=== PATIENT | female | born 1945 | race Caucasian/White ===

== ENCOUNTER 2020-11-23 12:06 | Inpatient (IN) ==
[2020-11-23] MEDS ORDERED: Diphenoxylate/Atropine 1 TAB TABLET PO PRN (21:45)
[2020-11-23] MEDS: *HR* OxyCODONE/APAP 5/325 TABLET PO PRN (22:36)
[2020-11-24 05:31] LABS: Basophils % 0.4 %; Eosinophils # 0.2 K/mcL (0.0-0.6); Eosinophils % 2.9 %; Hemoglobin 7.9 g/dL (11.5-15.4); Immature Granulocytes % 1.4 % (0-4); Lymphocytes # 2.3 K/mcL (0.6-4.6); Lymphocytes % 28.7 %; Mean Corpuscular HGB Conc 32.9 g/dL (31.6-35.5); Mean Corpuscular Hemoglobin 29.5 pg (28.0-33.3); Mean Corpuscular Volume 89.6 fL (83.0-100.0); Mean Platelet Volume 10.2 fL (9.4-12.4); Monocytes # 0.6 K/mcL (0.0-1.3); Neutrophils # 4.7 K/mcL (1.6-8.9); Platelet Count 206 K/mcL (140-400); Red Blood Count 2.68 M/mcL (3.82-4.97); Red Cell Distribution Width 13.4 % (11.5-14.5); Segmented Neutrophils % 58.6 %
[2020-11-24 05:48] LABS: Calcium 7.9 mg/dL (8.6-10.3); Potassium 3.3 mEq/L (3.5-5.1)
[2020-11-24] MEDS: *HR* OxyCODONE/APAP 5/325 TABLET PO PRN ×3 (05:51→20:24)
[2020-11-24] MEDS: *HR* Enoxaparin 40 MG/0.4 ML SYRINGE SQ SCH (05:52)
[2020-11-24] MEDS ORDERED: NON-FORMULARY MEDICATION 1 EACH EACH (Vit A/Vit C/Vit E/Zinc/Copper [Preservision Areds Ta PO SCH (09:00)
[2020-11-24] MEDS: Sennosides/Docusate Sodium TABLET PO SCH ×2 (09:04→20:22)
[2020-11-24] MEDS: Multivit/Ca/Min/Fe/FA 1 TAB TABLET PO SCH (09:04)
[2020-11-24] MEDS: lisinopriL 10 MG TABLET PO SCH (09:05)
[2020-11-24] MEDS: polyethylene glycoL 3350 17 GM POWD.PACK PO SCH ×2 (09:05→20:22)
[2020-11-24] MEDS: CRANBERRY FRUIT EXTRACT 250 MG PO SCH (09:05)
[2020-11-25] MEDS: *HR* Enoxaparin 40 MG/0.4 ML SYRINGE SQ SCH (06:22)
[2020-11-25 06:23] LABS: Basophils % 0.4 %; Eosinophils # 0.3 K/mcL (0.0-0.6); Eosinophils % 3.7 %; Hematocrit 25.3 % (35.3-44.9); Hemoglobin 8.3 g/dL (11.5-15.4); Immature Granulocytes % 1.4 % (0-4); Lymphocytes # 2.2 K/mcL (0.6-4.6); Lymphocytes % 24.1 %; Mean Corpuscular HGB Conc 32.8 g/dL (31.6-35.5); Mean Corpuscular Hemoglobin 29.3 pg (28.0-33.3); Mean Corpuscular Volume 89.4 fL (83.0-100.0); Mean Platelet Volume 9.9 fL (9.4-12.4); Monocytes # 0.8 K/mcL (0.0-1.3); Monocytes % 8.3 %; Neutrophils # 5.6 K/mcL (1.6-8.9); Platelet Count 202 K/mcL (140-400); Red Blood Count 2.83 M/mcL (3.82-4.97); Red Cell Distribution Width 13.6 % (11.5-14.5); Segmented Neutrophils % 62.1 %; White Blood Count 9.1 K/mcL (4.3-11.1)
[2020-11-25] MEDS: *HR* OxyCODONE/APAP 5/325 TABLET PO PRN ×2 (06:32→20:15)
[2020-11-25 07:05] LABS: Calcium 7.8 mg/dL (8.6-10.3); Potassium 3.5 mEq/L (3.5-5.1)
[2020-11-25] MEDS: lisinopriL 10 MG TABLET PO SCH (09:36)
[2020-11-25] MEDS: Sennosides/Docusate Sodium TABLET PO SCH ×2 (09:38→20:10)
[2020-11-25] MEDS: polyethylene glycoL 3350 17 GM POWD.PACK PO SCH ×2 (09:38→20:10)
[2020-11-25] MEDS: CRANBERRY FRUIT EXTRACT 250 MG PO SCH (09:39)
[2020-11-25] MEDS: Multivit/Ca/Min/Fe/FA 1 TAB TABLET PO SCH (09:47)
[2020-11-26] MEDS: *HR* Enoxaparin 40 MG/0.4 ML SYRINGE SQ SCH (05:23)
[2020-11-26] MEDS: *HR* OxyCODONE/APAP 5/325 TABLET PO PRN ×2 (08:00→22:24)
[2020-11-26] MEDS: Multivit/Ca/Min/Fe/FA 1 TAB TABLET PO SCH (08:01)
[2020-11-26] MEDS: lisinopriL 10 MG TABLET PO SCH (08:01)
[2020-11-26] MEDS: CRANBERRY FRUIT EXTRACT 250 MG PO SCH (09:39)
[2020-11-26] MEDS: Sennosides/Docusate Sodium TABLET PO SCH ×2 (09:39→22:25)
[2020-11-26] MEDS: polyethylene glycoL 3350 17 GM POWD.PACK PO SCH ×2 (09:39→22:24)
[2020-11-27] MEDS: *HR* Enoxaparin 40 MG/0.4 ML SYRINGE SQ SCH (06:04)
[2020-11-27] MEDS: *HR* OxyCODONE/APAP 5/325 TABLET PO PRN ×3 (06:05→20:29)
[2020-11-27] MEDS: Multivit/Ca/Min/Fe/FA 1 TAB TABLET PO SCH (08:51)
[2020-11-27] MEDS: Sennosides/Docusate Sodium TABLET PO SCH ×2 (08:51→20:20)
[2020-11-27] MEDS: lisinopriL 10 MG TABLET PO SCH (08:52)
[2020-11-27] MEDS: CRANBERRY FRUIT EXTRACT 250 MG PO SCH ×2 (08:52→20:20)
[2020-11-27] MEDS: polyethylene glycoL 3350 17 GM POWD.PACK PO SCH ×2 (08:52→20:20)
[2020-11-27 09:46] LABS: Basophils # 0.1 K/mcL (0.0-0.2); Basophils % 0.4 %; Eosinophils # 0.4 K/mcL (0.0-0.6); Eosinophils % 3.1 %; Hematocrit 26.3 % (35.3-44.9); Hemoglobin 8.7 g/dL (11.5-15.4); Immature Granulocytes % 1.6 % (0-4); Lymphocytes # 3.3 K/mcL (0.6-4.6); Lymphocytes % 29.2 %; Mean Corpuscular HGB Conc 33.1 g/dL (31.6-35.5); Mean Corpuscular Hemoglobin 29.5 pg (28.0-33.3); Mean Corpuscular Volume 89.2 fL (83.0-100.0); Mean Platelet Volume 9.8 fL (9.4-12.4); Monocytes # 0.9 K/mcL (0.0-1.3); Monocytes % 8.3 %; Neutrophils # 6.5 K/mcL (1.6-8.9); Platelet Count 320 K/mcL (140-400); Red Blood Count 2.95 M/mcL (3.82-4.97); Red Cell Distribution Width 14.2 % (11.5-14.5); Segmented Neutrophils % 57.4 %; White Blood Count 11.3 K/mcL (4.3-11.1)
[2020-11-27 09:51] LABS: Platelet Estimate Normal (Normal)
[2020-11-27 09:59] LABS: Calcium 8.7 mg/dL (8.6-10.3); Potassium 3.7 mEq/L (3.5-5.1)
[2020-11-27] MEDS ORDERED: 0.9 % Sodium Chloride 1,000 ML IVC SCH (10:15)
[2020-11-28] MEDS: *HR* OxyCODONE/APAP 5/325 TABLET PO PRN ×3 (05:39→20:00)
[2020-11-28] MEDS: *HR* Enoxaparin 40 MG/0.4 ML SYRINGE SQ SCH (05:41)
[2020-11-28 08:08] LABS: Basophils % 0.3 %; Eosinophils # 0.3 K/mcL (0.0-0.6); Eosinophils % 2.7 %; Hematocrit 24.9 % (35.3-44.9); Hemoglobin 8.1 g/dL (11.5-15.4); Immature Granulocytes % 1.9 % (0-4); Lymphocytes # 1.6 K/mcL (0.6-4.6); Lymphocytes % 16.6 %; Mean Corpuscular HGB Conc 32.5 g/dL (31.6-35.5); Mean Corpuscular Hemoglobin 29.3 pg (28.0-33.3); Mean Corpuscular Volume 90.2 fL (83.0-100.0); Mean Platelet Volume 9.8 fL (9.4-12.4); Monocytes # 0.7 K/mcL (0.0-1.3); Monocytes % 7.1 %; Neutrophils # 6.7 K/mcL (1.6-8.9); Platelet Count 291 K/mcL (140-400); Red Blood Count 2.76 M/mcL (3.82-4.97); Red Cell Distribution Width 14.4 % (11.5-14.5); Segmented Neutrophils % 71.4 %; White Blood Count 9.3 K/mcL (4.3-11.1)
[2020-11-28 08:17] LABS: Calcium 8.6 mg/dL (8.6-10.3)
[2020-11-28] MEDS: [UNRECOGNIZED DRUG - OTHER] PO SCH ×2 (09:56→20:02)
[2020-11-28] MEDS: Multivit/Ca/Min/Fe/FA 1 TAB TABLET PO SCH (09:56)
[2020-11-28] MEDS: Sennosides/Docusate Sodium TABLET PO SCH ×2 (09:57→20:01)
[2020-11-28] MEDS: CRANBERRY FRUIT EXTRACT 250 MG PO SCH (09:57)
[2020-11-28] MEDS: polyethylene glycoL 3350 17 GM POWD.PACK PO SCH ×2 (09:57→20:02)
[2020-11-29] MEDS: *HR* Enoxaparin 40 MG/0.4 ML SYRINGE SQ SCH (05:31)
[2020-11-29] MEDS: Multivit/Ca/Min/Fe/FA 1 TAB TABLET PO SCH (08:00)
[2020-11-29] MEDS: *HR* OxyCODONE/APAP 5/325 TABLET PO PRN ×3 (08:00→20:09)
[2020-11-29] MEDS: polyethylene glycoL 3350 17 GM POWD.PACK PO SCH ×2 (08:01→20:03)
[2020-11-29] MEDS: Sennosides/Docusate Sodium TABLET PO SCH ×2 (08:01→20:03)
[2020-11-29] MEDS: [UNRECOGNIZED DRUG - OTHER] PO SCH ×2 (08:01→20:08)
[2020-11-30] MEDS: *HR* Enoxaparin 40 MG/0.4 ML SYRINGE SQ SCH (06:05)
[2020-11-30] MEDS: *HR* OxyCODONE/APAP 5/325 TABLET PO PRN ×4 (06:05→20:17)
[2020-11-30] MEDS: Multivit/Ca/Min/Fe/FA 1 TAB TABLET PO SCH (07:40)
[2020-11-30] MEDS: polyethylene glycoL 3350 17 GM POWD.PACK PO SCH ×2 (07:41→20:16)
[2020-11-30] MEDS: [UNRECOGNIZED DRUG - OTHER] PO SCH ×2 (07:43→20:17)
[2020-11-30] MEDS: Sennosides/Docusate Sodium TABLET PO SCH ×2 (07:43→20:16)
[2020-12-01] MEDS: *HR* Enoxaparin 40 MG/0.4 ML SYRINGE SQ SCH (06:26)
[2020-12-01] MEDS: *HR* OxyCODONE/APAP 5/325 TABLET PO PRN ×3 (06:27→21:33)
[2020-12-01] MEDS: Sennosides/Docusate Sodium TABLET PO SCH ×2 (08:29→19:33)
[2020-12-01] MEDS: polyethylene glycoL 3350 17 GM POWD.PACK PO SCH ×2 (08:29→19:33)
[2020-12-01] MEDS: Multivit/Ca/Min/Fe/FA 1 TAB TABLET PO SCH (08:30)
[2020-12-01] MEDS: [UNRECOGNIZED DRUG - OTHER] PO SCH ×2 (08:31→19:42)
[2020-12-02] MEDS: *HR* Enoxaparin 40 MG/0.4 ML SYRINGE SQ SCH (05:30)
[2020-12-02] MEDS: polyethylene glycoL 3350 17 GM POWD.PACK PO SCH ×2 (08:56→19:47)
[2020-12-02] MEDS: Sennosides/Docusate Sodium TABLET PO SCH ×2 (08:56→19:47)
[2020-12-02] MEDS: [UNRECOGNIZED DRUG - OTHER] PO SCH ×2 (08:57→19:47)
[2020-12-02] MEDS: Multivit/Ca/Min/Fe/FA 1 TAB TABLET PO SCH (08:57)
[2020-12-02] MEDS: *HR* OxyCODONE/APAP 5/325 TABLET PO PRN (19:46)
[2020-12-03] MEDS: *HR* Enoxaparin 40 MG/0.4 ML SYRINGE SQ SCH (06:37)
[2020-12-03 07:17] LABS: Hematocrit 23.5 % (35.3-44.9); Hemoglobin 7.8 g/dL (11.5-15.4); Mean Corpuscular HGB Conc 33.2 g/dL (31.6-35.5); Mean Corpuscular Volume 90.4 fL (83.0-100.0); Mean Platelet Volume 9.7 fL (9.4-12.4); Platelet Count 358 K/mcL (140-400); Red Cell Distribution Width 14.9 % (11.5-14.5); White Blood Count 9.2 K/mcL (4.3-11.1)
[2020-12-03 07:32] LABS: Albumin 3.1 g/dL (3.5-5.7); Albumin/Globulin Ratio 1.1 (1.1-2.2); Bilirubin,Total 0.5 mg/dL (0.3-1.0); Calcium 8.9 mg/dL (8.6-10.3); Globulin 2.7 g/dL (2.4-3.5); Magnesium 1.8 mg/dL (1.6-2.6); Potassium 3.6 mEq/L (3.5-5.1); Total Protein 5.8 g/dL (6.4-8.9)
[2020-12-03] MEDS: *HR* OxyCODONE/APAP 5/325 TABLET PO PRN ×3 (08:12→20:34)
[2020-12-03] MEDS: Multivit/Ca/Min/Fe/FA 1 TAB TABLET PO SCH (08:12)
[2020-12-03] MEDS: polyethylene glycoL 3350 17 GM POWD.PACK PO SCH ×2 (08:13→20:36)
[2020-12-03] MEDS: Sennosides/Docusate Sodium TABLET PO SCH ×2 (08:13→20:37)
[2020-12-03] MEDS: [UNRECOGNIZED DRUG - OTHER] PO SCH ×2 (08:14→20:35)
[2020-12-04] MEDS: *HR* Enoxaparin 40 MG/0.4 ML SYRINGE SQ SCH (05:18)
[2020-12-04] MEDS: Multivit/Ca/Min/Fe/FA 1 TAB TABLET PO SCH (08:32)
[2020-12-04] MEDS: *HR* OxyCODONE/APAP 5/325 TABLET PO PRN ×3 (08:33→20:41)
[2020-12-04] MEDS: [UNRECOGNIZED DRUG - OTHER] PO SCH ×2 (08:33→20:42)
[2020-12-04] MEDS: polyethylene glycoL 3350 17 GM POWD.PACK PO SCH ×2 (08:35→20:42)
[2020-12-04] MEDS: Sennosides/Docusate Sodium TABLET PO SCH ×2 (08:35→20:42)
[2020-12-05] MEDS: *HR* Enoxaparin 40 MG/0.4 ML SYRINGE SQ SCH (05:49)
[2020-12-05] MEDS: polyethylene glycoL 3350 17 GM POWD.PACK PO SCH (08:39)
[2020-12-05] MEDS: [UNRECOGNIZED DRUG - OTHER] PO SCH (08:40)
[2020-12-05] MEDS: *HR* OxyCODONE/APAP 5/325 TABLET PO PRN ×2 (08:40→12:49)
[2020-12-05] MEDS: Sennosides/Docusate Sodium TABLET PO SCH (08:40)
[2020-12-05] MEDS: Multivit/Ca/Min/Fe/FA 1 TAB TABLET PO SCH (08:40)
[2020-12-05 10:11] VITALS: BP 127/75
== END 2020-12-05 14:30 | disposition home health service (06) | DRG 560 ==
LOC: INPGRE 19:20
PROVIDERS: ADMIT Family Medicine; ATTEND Family Medicine